=== PATIENT | male | born 1995 | race African-American/Black ===

== ENCOUNTER 2020-07-20 02:36 | Emergency (ER) | payer MEDICAID ==
[~2020-07-20] VITALS: Ht 170.2 cm; Wt 69.0 kg
[2020-07-20 02:51] VITALS: BP 127/75
[2020-07-20 03:39] LABS: CHLORIDE 107 mEq/L (98-107)
[2020-07-20 03:40] LABS: BASOPHILS % 0.9 % (0.0-2.0); HEMOGLOBIN. 14.2 g/dL (14.0-18.0); LYMPHOCYTES % 28.7 % (20.0-50.0); MEAN CORPUSCULAR HEMOGLOBIN 30.2 pg (28.0-32.0); MEAN CORPUSCULAR VOLUME 89.2 fL (80.0-94.0); MONOCYTES % 8.8 % (2.0-8.0); NEUTROPHILS % 58.6 % (40.0-76.0); PLATELET 211 x1000/uL (130-400); RED BLOOD CELL COUNT 4.71 mill/uL (4.7-6.1); RED CELL DISTRIBUTION WIDTH 13.5 % (11.6-14.6)
== END 2020-07-20 05:10 | disposition home or self-care (01) ==
LOC: ER 03:25
DX: R07.89 Other chest pain (principal); R03.0 Elevated blood-pressure reading, without diagnosis of hypertension
CPT/HCPCS: 36415; 71045; 80053; 84484; 85025; 93005; 99285

== ENCOUNTER 2025-02-02 15:44 | Emergency (ER) | payer MEDICAID ==
[~2025-02-02] VITALS: Ht 172.7 cm; Wt 62.0 kg
[2025-02-02 15:54] VITALS: O2SAT 100
[2025-02-02] MEDS ORDERED: CYCL10TA21 MT (18:21)
[2025-02-02] MEDS ORDERED: IBUP-1455 MT (18:21)
[2025-02-02] MEDS: CYCLOBENZAPRINE 10MG TABLET PO ONE (18:26)
[2025-02-02] MEDS: IBUPROFEN 600MG TABLET PO ONE (18:27)
[2025-02-02 18:30] VITALS: BP 134/71; PULSE 79; RESP 18; TEMP 36.7; O2SAT 100
== END 2025-02-02 18:41 | disposition home or self-care (01) ==
LOC: ER 15:44
DX: M62.838 Other muscle spasm (principal); Z98.890 Other specified postprocedural states
CPT/HCPCS: 99283